=== PATIENT | male | born 1975 | race Caucasian/White ===

== ENCOUNTER 2024-03-11 15:22 | Emergency (ER) | payer OTHER, SELFPAY ==
[2024-03-11 15:40] VITALS: BP 111/73; PULSE 82; RESP 15; TEMP 36.6; O2SAT 98
--- NOTE | 2024-03-11 15:41 | ED.GENADULT ---
HPI - General Adult General Chief complaint: GI Bleed Stated complaint: Hemorrhoid/Bleeding Time Seen by Provider: 03/11/24 15:43 Source: patient, RN notes reviewed and old records reviewed Mode of arrival: ambulatory Limitations: no limitations History of Present Illness HPI narrative: 49 year old male who presents to [facility] [place] [facility] care with complaints of having episodes of rectal bleeding. Patient reports that he was in [place] on Sunday for the [employer] and had been on his feet all day long. He reports that he started having some bright red rectal blood that was running down his legs, he got back to hotel and got cleaned up and bleeding stopped after he laid down for awhile. He stated on Sunday morning he had bowel movement and bleeding started again and was like squirting out did resolve after awhile. He had BM this morning and had some bright red bleeding again. He reports that he called his doctor in [facility] and was told to go to ER or urgent care. patient admits to feeling tired which is not like him.Patient states that he had CO and stent in May of 2023 and he is presently on Plavix and aspirin 81mg daily. patient reports no pain to rectal area or to his abdomen at this time.Patient reports that he is wearing nicotine patch and continues to smoke 4-5 cigarettes daily and vapes while having patch on. MD complaint: rectal bleeding intermittently since Sunday. Onset (ago): day(s) (day 3 of symptoms) Severity: moderate Exacerbating factors: other (prolong standing and with BM's) Treatments prior to arrival: none Related Data Home Medications Medication Instructions Recorded Confirmed amlodipine 2.5 mg tablet mg 03/11/24 aspirin 81 mg tablet,delayed mg 03/11/24 release atorvastatin 80 mg tablet mg 03/11/24 clopidogrel 75 mg tablet mg 03/11/24 metoprolol succinate 50 mg mg PO 03/11/24 tablet,extended release 24 hr nicotine 21 mg/24 hr daily 03/11/24 transdermal patch Allergies Allergy/AdvReac Type Severity Reaction Status Date / Time No Known Allergies Allergy Verified 03/11/24 15:30 Review of Systems Review of Systems: CONSTITUTIONAL: Denies fever, chills, or sweats.reports fatigue EYES: Denies visual changes, redness, or discharge. ENT: Denies rhinorrhea, congestion, sore throat, or otalgia. CARDIOVASCULAR: Denies chest pain, palpitations, or edema. RESPIRATORY: Denies cough or dyspnea. GASTROINTESTINAL: Denies abdominal pain, nausea, vomiting, or diarrhea. reports episodes of rectal bleeding since Sunday GENITOURINARY: Denies dysuria or hematuria. SKIN: Denies rash or itching. MUSCULOSKELETAL: Denies back pain, joint pain, or myalgia. NEUROLOGIC: Denies headache, numbness, or weakness. PSYCHIATRIC: Denies anxiety or depression. All systems reviewed & are unremarkable except as noted in HPI and below PMFSH Past Medical History Medical History (Updated 03/12/24 @ 19:22 by Jojo Freitas NP) GERD (gastroesophageal reflux disease) Hemorrhoids History of heart attack May 2023 Hx of assisted use of blood thinners Hypertension Injury to penis surgical repair Surgical History Surgical History (Updated 03/11/24 @ 16:07 by Jojo Freitas NP) H/O heart artery stent Social History Social History (Updated 03/12/24 @ 19:01 by Jojo Freitas NP) Smoking status: Current every day smoker Tobacco type: cigarettes Additional smoking assessment comments: states he smokes 4-5 cigarettes daily, vapes Alcohol intake: former Alcohol use details: reports no alcohol use Substance use: current Substance use type: marijuana Gender identity (if verbalized by the patient): Male Comments At time of signature, agree with nursing past medical, surgical, social and family history. There is no relevant family history pertinent to the presenting complaint Exam Narrative: GENERAL: Well-appearing, well-nourished, and in no acute distress at this time denies any shor
[2024-03-11 16:00] VITALS: BP 111/73; PULSE 82; RESP 15; TEMP 36.6; O2SAT 98
--- NOTE | 2024-03-11 16:08 | PC.NURSE ---
rectal exam done by topstitcher zigzag with rn at bedside. no bleeding noted at this time.
== END 2024-03-11 16:10 | disposition short-term general hospital (02) ==
PROVIDERS: Emergency Provider Registered Nurse
DX: K64.8 Other hemorrhoids (principal); K92.1 Melena; F17.210 Nicotine dependence, cigarettes, uncomplicated; F17.290 Nicotine dependence, other tobacco product, uncomplicated; F12.90 Cannabis use, unspecified, uncomplicated; K21.9 Gastro-esophageal reflux disease without esophagitis; I25.2 Old myocardial infarction; I10 Essential (primary) hypertension; Z95.5 Presence of coronary angioplasty implant and graft
CPT/HCPCS: 99212; G0463